=== PATIENT | female | born 1980 | race Caucasian/White ===

== ENCOUNTER 2024-06-28 16:02 | Emergency (ER) | payer MEDICAID ==
[~2024-06-28] VITALS: Ht 170.2 cm; Wt 89.0 kg
[2024-06-28 16:05] VITALS: BP 130/68; PULSE 100; RESP 16; TEMP 37; O2SAT 98
[2024-06-28 16:57] VITALS: TEMP 98.6
[2024-06-28] MEDS: ACETAMINOPHEN 325MG TABLET PO ONE (16:57)
[2024-06-28] MEDS ORDERED: ACET-2708 MT (17:19)
[2024-06-28] MEDS ORDERED: LIDO-53 TP (17:20)
== END 2024-06-28 17:31 | disposition home or self-care (01) ==
LOC: ER 16:02
DX: M25.511 Pain in right shoulder (principal); J45.909 Unspecified asthma, uncomplicated
CPT/HCPCS: 73030; 73110; 99284